=== PATIENT | female | born 1990 | race Hispanic/Latino ===

== ENCOUNTER 2021-09-30 16:43 | Emergency (ER) | payer OTHER, SELFPAY ==
[2021-09-30 17:02] VITALS: BP 132/64; PULSE 88; RESP 16; TEMP 36.8; O2SAT 99; BMI 21.9
--- NOTE | 2021-09-30 17:08 | DI.RAD.S_ITS ---
PROCEDURE: XR KNEE RT 3V INDICATIONS: twist/fall snowboard accident TECHNIQUE: 3 views of the knee were acquired. COMPARISON: None. FINDINGS: Bones: No fractures or dislocations. No suspicious bony lesions. Soft tissues: No joint effusion. No suspicious soft tissue calcifications. IMPRESSION: Normal right knee Dictated by: Satya Krueger M.D. on 09/30/2021 at 16:55 Approved by: Satya Krueger M.D. on 09/30/2021 at 16:56
--- NOTE | 2021-09-30 19:36 | ED.LOWEXIN ---
HPI - Extremity Injury (Lower) General Chief Complaint: Extremity Injury, Lower Stated Complaint: RT KNEE PAIN Time Seen by Provider: 09/30/21 19:35 Source: patient Mode of arrival: Wheelchair History of Present Illness HPI Narrative: Patient is a 31-year-old female who presents with right knee pain. She was snowboarding today she got off the chair lift and her knee twisted. She heard popping. She was initially seen in a dream and given ibuprofen. Came here for an x-ray. It hurts to ambulate she is able to extend and flex her knee but it is quite painful. No numbness tingling or weakness. She has had some ongoing right ankle pain her ankle does not hurt Related Data Previous Rx's Medication Instructions Recorded hydrocodone 5 mg-acetaminophen 325 1 tab PO Q6H PRN #10 tab 09/30/21 mg tablet Allergies Allergy/AdvReac Type Severity Reaction Status Date / Time No Known Drug Allergies Allergy Verified 09/30/21 17:02 Review of Systems Review of Systems Narrative: GENERAL: Denies chills,fever HEENT: Denies throat pain RESPIRATORY: Denies dyspnea, cough, wheezing CARDIOVASCULAR: Denies chest pain, palpitations GASTROINTESTINAL: Denies nausea, vomiting MUSCULOSKELETAL: See HPI SKIN: No rash, no laceration, no pruritus NEUROLOGIC: Denies weakness, dizziness, headache, numbness 8 point review of systems is negative except for those stated above and HPI Patient History Social History Smoking Status: Never smoker Smoking Status: Never smoker Substance Use Type: does not use Exam Initial Vital Signs Initial Vital Signs: Vital Signs Temperature 98.3 F 09/30/21 17:02 Pulse Rate 88 09/30/21 17:02 Respiratory Rate 16 09/30/21 17:02 Blood Pressure 132/64 09/30/21 17:02 Pulse Oximetry 99 09/30/21 17:02 GENERAL: Well-appearing, well-nourished and in no acute distress. CARDIOVASCULAR: peripheral pulses in tact, cap refill <2 sec RESPIRATORY: No respiratory distress, speaks in full sentences without difficulty EXTREMITIES: Normal range of motion, no clubbing or edema. Neurovascularly intact. Right knee able to extend quite painful distal pedal pulse is intact painful posterior anterior drawer but knee is stable. No significant swelling. Sensation intact distally. NEUROLOGICAL: Cranial nerves II through XII grossly intact. Normal gait and speech. SKIN: Warm, dry, no petechiae, no rashes or lesions. Procedures Orthopedic Splinting/Casting Injury #1: Side: right Lower Extremity Injury Location: knee Lower Extremity Immobilizer: knee immobilizer Other Orthopedic Equipment: crutches Post splinting neuro exam: intact Post splinting vascular exam: intact Placed by: Nursing Course Orders Ordered: ED Orders 09/30/21 17:08 XR knee RT 3V Stat Discontinued Medications Hydrocodone Bitart/Acetaminophen (Hydrocodone/Acet 5/325 Prepack) 1 bottle MISC SEEINSTR ONE Stop: 09/30/21 19:43 Last Admin: 09/30/21 20:11 Dose: 1 bottle Documented by: LUCRETIA Vital Signs Vital signs: Vital Signs - 8 hr 09/30/21 17:02 Temperature 98.3 F Pulse Rate 88 Respiratory Rate 16 Blood Pressure 132/64 Pulse Oximetry 99 MDM - Extremity Injury (Lower) Imaging Data Extremity x-ray #1: Radiologist's Impression: PROCEDURE:? XR KNEE RT 3V ? INDICATIONS:? twist/fall snowboard accident ? TECHNIQUE:? 3 views of the knee were acquired.? ? COMPARISON:? None. ? FINDINGS:? ? Bones:? No fractures or dislocations.? No suspicious bony lesions.? ? Soft tissues:? No joint effusion.? No suspicious soft tissue calcifications.? ? ? IMPRESSION:? Normal right knee ? ? Dictated by: Satya Krueger M.D. on 09/30/2021 at 16:55 ? ? Approved by: Satya Krueger M.D. on 09/30/2021 at 16:56 ? Discharge Plan Departure Patient Disposition: Home Clinical Impression: Strain of right knee Instructions: DI for Knee Sprain Activity Restrictions/Additional Instructions: *You have been diagnosed with right knee sprain *What to do: Wear knee immobilizer while active. He may take to sleep in. His crutches while active. Elevate and ice. You may need outpatient MRI if things do not improve. Please see your primary care provider about this. *Continue to take medications as directed Ibuprofen 800 mg every 8 hours if needed for [id number] pain Theodosia 1 tablet every 6 hours if needed for severe pain *Follow up with your primary care provider in 2-3 days or call [phone] *Return to ER if you should have increasing pain weakness numbness or tingling or any new, worsening or concerning symptoms CONTROLLED SUBSTANCE DISCHARGE (Narcotoic/benzodiazepine/Flexeril/Phenergan) 1. You have been prescribed narcotic medications, it does have acetaminophen/Tylenol/paracetamol in it, DO NOT TAKE MORE THAN 4,00mg in 24 hours of Tylenol. TRAMADOL DOES NOT CONTAIN TYLENOL 2. Please understand that we cannot provide further refills of narcotics, benzodiazepines or controlled substances through the ED and her pain management will need to be through your provider. 3. While on these medications you cannot drive or operate heavy machinery. 4. You cannot sign legal documents or perform any duties such as this. 5. As long as you're taking opiate pain medications he should also be taking a stool softener such as Colace, Dulcolax, MiraLAX or prune juice, to help avoid constipation. Prescriptions: New hydrocodone-acetaminophen 5-325 mg tablet 1 tab PO Q6H PRN (Reason: pain) Qty: 10 0RF Referrals: [facility] [Provider Group] [facility] Dallin Varela [Provider Group]
[2021-09-30] MEDS: HYDROCODONE/ACET 5/325 PREPACK 1 BOTTLE MISC (20:11)
== END 2021-09-30 20:30 | disposition home or self-care (01) ==
PROVIDERS: Emergency Provider Emergency Medicine
DX: S83.91XA Sprain of unspecified site of right knee, initial encounter (principal); Y93.23 Activity, snow (alpine) (downhill) skiing, snowboarding, sledding, tobogganing and snow tubing
CPT/HCPCS: 73562; 99283

== ENCOUNTER → 2021-10-11 08:36 | Outpatient (CLI) | payer OTHER, SELFPAY ==
--- NOTE | 2021-10-11 | DI.MRI.S_ITS ---
PROCEDURE: MR KNEE RT WO CON INDICATIONS: Unspecified injury of unspecified lower leg, initial encount TECHNIQUE: Noncontrast sagittal PD fast spin echo and T2 fast spin echo with fat saturation, sagittal 3-D FLASH with fat saturation; coronal T1 spin echo and PD fast spin echo with fat saturation, and axial PD fast spin echo with fat saturation through the knee. COMPARISON: None. FINDINGS: Image quality: Excellent. Menisci: Mildly increased certain all is seen within the peripheral portion of the medial meniscal body adjacent to the medial collateral ligament tear without definite extension to an articular surface. The lateral meniscus is intact. There is no significant meniscal extrusion. Cruciate ligaments: The anterior and posterior cruciate ligaments appear intact. Medial structures: There is edema surrounding the proximal medial collateral ligament. Additionally, there is partial disruption of the medial collateral ligament fibers with fluid signal intensity appearing within the ligament, consistent with a grade 2 sprain. Some of the ligament fibers remain in continuity. The semimembranosus tendon insertions and meniscocapsular junction appear intact. Visualized portions of the pes anserinus tendons appear normal. No abnormal bursal fluid. Lateral structures: The lateral collateral ligament, long and short heads of the biceps femoris tendon appear intact. The popliteus tendon appears intact. No signs of posterolateral corner injury. Iliotibial band appears normal. Anterior structures: The quadriceps and patellar tendons appear intact. Patellar alignment is normal. No femoral trochlear dysplasia or ventral trochlear prominence. No edema in the infrapatellar fat pad. Bones and cartilage: Osseous edema is seen at the posterior to far posterior weight-bearing portion of the lateral femoral condyle without a discrete fracture line, consistent with trabecular bone injury that may be related to a direct contusion. The cartilage of the medial and lateral femorotibial compartments, as well as the patellofemoral compartment, appears normal in thickness. Joint space: There is a physiologic amount of joint fluid. A trace medial popliteal cyst is present. The musculature surrounding the knee is normal in bulk. IMPRESSION: 1. Grade 2 sprain of the proximal medial collateral ligament. Some of the ligament fibers remain in continuity. 2. Mild trabecular bone injury at the posterolateral aspect of the lateral femoral condyle may be secondary to a direct contusion. 3. Mildly increased signal is seen in the medial meniscus near the junction of the posterior horn and body adjacent to the medial collateral ligament tear without extension to an articular surface, which may be reactive or related to a meniscal contusion without a discrete meniscal tear identified. Dictated by: Wilberto Giordano M.D. on 10/11/2021 at 9:12 Approved by: Wilberto Giordano M.D. on 10/11/2021 at 9:23
== END ==
PROVIDERS: Referring Provider Physician Assistant; Visit Provider Physician Assistant
DX: S83.411A Sprain of medial collateral ligament of right knee, initial encounter (principal); S89.91XA Unspecified injury of right lower leg, initial encounter; X58.XXXA Exposure to other specified factors, initial encounter
CPT/HCPCS: 73721

== ENCOUNTER → 2025-02-21 10:49 | Outpatient (CLI) | payer OTHER, SELFPAY ==
--- NOTE | 2025-02-21 10:52 | DI.US.S_ITS ---
PROCEDURE: US OB >= 14 WEEKS FETUS INDICATIONS: 20 WK ANATOMY SCAN OUTSIDE/PRIOR DATING DATA: Last menstrual period (LMP): 09/23/24. LMP-based estimated date of delivery (CEDRICK): 06/30/25. First dating scan (date and location): Not available. Estimated date of delivery (CEDRICK) from first dating scan: Not applicable. The calculations are made using the clinical CEDRICK of 06/30/25. TECHNIQUE: Real-time scanning was performed of the fetus, with image documentation and biometric measurements. Endovaginal scanning: Not performed COMPARISON: None. FINDINGS: General: A single living intrauterine gestation is present. Presentation: Transverse, head to maternal right. Placenta: Placental position is anterior , without previa. Amniotic fluid index: 13.6 cm, normal range is 5-24 cm. Single deepest vertical pocket is 3.8 cm. heart rate: 147 beats per minute. Maternal cervical canal: Closed and 4.4 cm long. Normal lower limit is 2.5 cm. biometrics: Biparietal diameter: 5.0 cm, 21 weeks one day Head circumference: 18.2 cm, 20 weeks four days Abdominal circumference: 17.4 cm, 22 weeks two days Femur length: 3.5 cm, 21 weeks 0 days Clinically estimated gestational age: 21 weeks four days Composite gestational age from present scan: 21 weeks two days Estimated weight and percentile: 438 g, 47th percentile Anatomic survey: Neuro: Ventricles are non-dilated at less than 10 mm. Cisterna magna is normal at 3-11 mm. Cerebellum is normal in size and morphology. Nuchal skin fold: Normal at less than 6 mm between 14-21 weeks gestational age. Face: Nose and lips, facial profile are normal. Spine: No evidence for spina bifida. Heart: 4-chambered heart is present, with normal ventricular outflow tracts. Diaphragm: Diaphragm is intact. Stomach: Left-sided stomach is present. Kidneys: No hydronephrosis. Normal is less than 5 mm in 2nd trimester, less than 7 mm in 3rd trimester. Cord: 3-vessel cord has orthotopic insertion. Bladder: Normal in size. Extremities: All 4 extremities identified. IMPRESSION: Single living intrauterine with estimated weight at the 47th percentile. Symmetric growth and normal anatomy. Composite gestational age two days behind the expected gestational age. Closed cervix and normal amniotic fluid volume. Anterior placenta. We strive to produce accurate, complete, and clear reports of imaging services. To assist us in improving patient care, this report was composed using standard report templates and voice recognition software. Therefore, it may contain abnormal punctuation, insertions and/or omissions. Occasional wrong-word or sound-alike substitutions may occur. Though we review the report and make efforts to correct it, we do recommend that the report be read carefully in proper context to recognize any text inaccuracies. Dictated by: Eugenia Romero M.D. on 02/21/2025 at 16:03 Approved by: Eugenia Romero M.D. on 02/21/2025 at 16:08
== END ==
PROVIDERS: Referring Provider Advanced Practice Midwife; Visit Provider Advanced Practice Midwife
DX: Z34.92 Encounter for supervision of normal pregnancy, unspecified, second trimester (principal); Z3A.21 21 weeks gestation of pregnancy
CPT/HCPCS: 76811

== ENCOUNTER → 2025-04-05 07:43 | Outpatient (CLI) | payer OTHER, SELFPAY ==
[2025-04-05 08:52] LABS: Glucose Fasting 113 mg/dL (70-100)
[2025-04-05 10:18] LABS: Glucose 1 Hour 178 mg/dL (70-170)
[2025-04-05 10:57] LABS: Glucose 2 Hour 245 mg/dL (70-140)
[2025-04-05 11:21] LABS: Glucose Tol Interpretation INTERPRETATION
[2025-04-05 12:44] LABS: Glucose 3 Hour 153 mg/dL (70-115)
== END ==
LOC: LAB 07:46
PROVIDERS: Referring Provider Nurse Practitioner Obstetrics & Gynecology; Visit Provider Nurse Practitioner Obstetrics & Gynecology
DX: Z34.80 Encounter for supervision of other normal pregnancy, unspecified trimester (principal); Z13.1 Encounter for screening for diabetes mellitus; Z3A.27 27 weeks gestation of pregnancy
CPT/HCPCS: 36415; 82951; 82952

== ENCOUNTER 2025-06-24 07:11 | Inpatient (IN) | payer OTHER, SELFPAY ==
[2025-06-24 07:32] VITALS: BP 129/78
--- NOTE | 2025-06-24 07:49 | PM.OBHP.1 ---
OB HPI Date/Time Date of admission: 06/24/25 Date Patient Seen: 06/24/25 Time Patient Seen: 07:15 History of Present Condition Chief complaint: INDUCTION : 1 Para: 0 Estimated Date of Delivery: 06/30/25 Estimated Gestational Age (weeks): 39w1d Narrative: Jena Chisholm is a 34 year old at 39w1d by LMP and concordant early ultrasound who presents for medical IOL due to GDMA2. informed consent was obtained and a velazquez balloon was placed last night for cervical ripening and that came out around 2030 last night. There has been no bleeding, cramping or leaking of fluid, and movement is good. has been complicated by GDMA2 with care under CNMs, co-managed GDMA2 with MFM with reassuring testing and normal serial growth US. Her and game programer are at the bedside for support. Indications Indication for induction OB: gestational diabetes History of Present care: good care, initiated at week #, number of visits (13) and pounds weight gain (18) Dating criteria: LMP confirmed by 1st trimester US Ultrasounds: normal 1st trimester US, normal mid trimester US and other (35wk EFW 87th% (3,027grams)) Obstetrical complications: gestational diabetes Medical complications: none Preadmission Labs Blood type: A (+) positive -: Antibody screen: negative, Cystic fibrosis screen: negative, GBS status: positive, HBsAG: negative, HIV: negative and RPR/VDLR: negative -: Chlamydia screen: not detected and Gonorrhea screen: not detected -: Rubella: immune and Varicella: immune HCT: 37.5 HCAB: negative PAP: Normal Cell-free DNA: negative x 3 1 hr GTT: 192 3 hr GTT: 3 hr (113, 178, 245, 153) Prior (ies) Hx # Term Pregnancies: 0 Hx # Pregnancies: 0 Number of Living Children: 0 Multiple births: 0 Spontaneous abortions: 0 Ectopic pregnancies: 0 Elective abortions: 0 Evaluation Evaluation Baseline heart rate: 135 Variability: Moderate (6-25) monitor accelerations: Present Monitor Decelerations: Absent Status: Category l Dilation: 3-4 cm Effacement: 60-70% station: -2 Position of cervix: posterior Consistency: soft Burgess score: 7 PFSH Family History (Updated 06/24/25 @ 08:10 by Jesusita Matias CNM) Grandmother Diabetes mellitus Grandfather Diabetes mellitus Mother Diabetes mellitus Father Diabetes mellitus Other Down syndrome Social History (Updated 06/24/25 @ 08:11 by Jesusita Matias CNM) marital status: number of children: 0 household members: spouse lives independently: Yes caregiver/support person: No education level: high school occupational status: student Smoking Status: Never smoker Meds Home Medications and Allergies Home Medications ?Medication ?Instructions ?Recorded ?Confirmed ?Type metformin 500 mg tablet,extended 1,000 mg PO BID 06/24/25 06/24/25 History release 24 hr Allergies Allergy/AdvReac Type Severity Reaction Status Date / Time No Known Drug Allergies Allergy Verified 06/24/25 07:35 Review of Systems Review of Systems ROS: Yes All systems reviewed with the patient and are negative except as otherwise documented OB Exam Vital signs Blood Pressure: 129/78 Pulse Rate: 75 Resp Effort & Inspection: normal respiratory effort and able to speak in complete sentences Cardio Rate: regular rate Rhythm: regular rhythm Heart Sounds: S1 normal and S2 normal Presentation: vertex Objective Labs 06/24/25 08:00 Assessment and Plan Assessment and Plan Assessment and Plan narrative: Assessment: Term Nullipara IOL for GDMA2 GBS prophylaxis indicated Cat 1 FHR Plan: Admit for medical IOL with misoprostol SL x2 for continued cervical ripening. Encourage balanced rest and activity. Continuous monitoring, per protocol. Reassess after 2 doses of miso. Time-Based Coding :: [TOTAL MINUTES] spent with patient and on the chart (including review of chart, obtaining history, exam, reviewing outside data, placing orders, documenting exam and treatment plan, and counseling patient) on [DATE].
[2025-06-24 08:13] LABS: Add Manual Diff / Slide Review NO; Hematocrit 35.2 % (36-46); Hemoglobin 12.2 g/dL (12.0-16.0); Lymphocytes Absolute Auto 1600 /uL (1100-4500); Mean Corpuscular HGB Conc 34.6 % (30-36); Mean Corpuscular Hemoglobin 32.4 PG (26-34); Mean Corpuscular Volume 93.6 fL (80-100); Platelet Count 233 X10^3/uL (150-400)
[2025-06-24 08:27] VITALS: BP 129/78; PULSE 75
--- NOTE | 2025-06-24 12:00 | PM.OBPNLAB ---
Date/Time Date Patient Seen: 06/24/25 Time Patient Seen: 12:00 Pain Control Comments: Sitting up on a ball talking and laughing. Feeling occasional mild cramping. No vaginal bleeding or leaking of fluid. [employer] and present and supportive. VS: BP 127/66, HR 86bpm, T 36.0C Temporal Pelvic Exam station: -2 Comments: CE deferred, not in labor Contractions Monitor mode: External Contraction frequency (min): 2 Contraction duration (min): 1 Contraction pattern: Irregular Contraction intensity: Mild Status status: Category l Heart Rate Baseline: 140 Monitor Accelerations: Present Monitor Decelerations: Absent Assessment and Plan Assessment: induction ongoing Plan: continuous present management Comments: Given 2nd dose of miso and reassess in 4 hours.
[2025-06-24] MEDS: AMPICILLIN 2,000 MG in SODIUM CHLORIDE 0.9% 100 ML 200 MG IV (13:55)
--- NOTE | 2025-06-24 17:05 | PM.OBPNLAB ---
Date/Time Date Patient Seen: 06/24/25 Time Patient Seen: 17:05 Pain Control Pain control: epidural Comments: Apparent rapid labor after 2nd dose of misoprostol given at 1220. Coped well with continuous labor support. Began to feel spontaneous urge to push and was checked and found to be 9cm. She requested and received an epidural. Now resting compfrtably and happy to have good pain relief. VS: BP 100/59, HR 90bpm, T 36.0C Temporal Pelvic Exam Dilation (cm): 9 Effacement (%): 100 station: -1 Amniotic membrane status: Bulging Contractions Monitor mode: External Contraction frequency (min): 2 (1-3) Contraction duration (min): 1 Contraction pattern: Regular Contraction intensity: Strong/Firm Status status: Category ll Heart Rate Baseline: 140 Monitor Accelerations: Present Monitor Decelerations: Late Monitor Variability: Moderate Assessment and Plan Assessment: active labor Plan: continuous present management Comments: Ephedrine given for BP with rapid resolution of late decelerations. Anticipate second stage soon. [facility] OB/ incidentally on unit making rounds and aware of patient status.
[2025-06-24] MEDS: ePHEDrine 50 MG/ML VIAL 10 MG IV ×2 (17:08→18:01)
--- NOTE | 2025-06-24 17:08 | PM.AN.REGBLK ---
Regional Block Pre-procedure Procedure: Continuous Lumbar Epidural for L&D (with dural puncture and small intrathecal injection ) Attending OB provider: Jesusita Matias PMH/ROS narrative: 34yo induced for GDM, now in labor at 9 cm and requesting epidural. See pre-anesthesia form for further details. ASA Class: II Labs: Hct 35.2 % (36-46) L 06/24/25 08:00 Plt Count 233 X10^3/uL (150-400) 06/24/25 08:00 Medications: Current Medications Generic Name Dose Route Start Last Admin Trade Name Freq PRN Reason Stop Dose Admin Calcium Carbonate 1,000 mg 06/24/25 07:21 Calcium Carbonate 500 Mg Tab PO Q2HR PRN Dyspepsia Carboprost Tromethamine 250 mcg 06/24/25 07:21 Carboprost 250 Mcg/Ml Ampul IM Q90M PRN Bleeding Diphenhydramine HCl 25 mg 06/24/25 17:06 Diphenhydramine 50 Mg/Ml Vial IV Q10M PRN Pruritis Ephedrine Sulfate 10 mg 06/24/25 17:06 Ephedrine 50 Mg/Ml Vial IV Q5M PRN Blood pressure decrease more than 20% of baseline. Fentanyl 100 mcg 06/24/25 07:21 Fentanyl 100 Mcg/2 Ml Inj IV Q1H PRN Pain, Severe (7-10) Oxytocin/Lactated Ringer's 30 unit in 500 mls @ 200 mls/hr 06/24/25 07:21 Oxytocin Premix IV CONT PRN Bleeding Protocol Tranexamic Acid 1,000 mg/ 100 mls @ 600 mls/hr 06/24/25 07:21 Sodium Chloride IV NOW PRN Bleeding Ampicillin Sodium 1,000 mg/ 100 mls @ 200 mls/hr 06/24/25 11:30 Sodium Chloride IV Q4H DEMETRIS Oxytocin/Lactated Ringer's 30 unit in 500 mls @ 2 mls/hr 06/24/25 07:30 Oxytocin Premix IV TITRATE DEMETRIS Protocol 2 MILLIUNIT/MIN Lactated Ringer's 1,000 mls @ 100 mls/hr 06/24/25 07:30 Lactated Ringers IV 06/24/25 17:29 CONT DEMETRIS FENT 2MCG/ML BUPIV 0.125% EPI 200 mcg in 100 mls @ 6 mls/hr 06/24/25 17:15 Fentanyl/Bupiv/Ns 2mcg/Ml - 0.125% EPIDURAL CONT DEMETRIS Lidocaine HCl 20 ml 06/24/25 07:21 Lidocaine 1% 20 Ml INJ INTRA-OP PRN Post Delivery Metformin HCl 500 mg 06/24/25 08:00 06/24/25 08:21 Metformin 500 Mg Tablet PO 500 mg 0800 DEMETRIS Administration Metformin HCl 1,000 mg 06/24/25 21:00 Metformin 500 Mg Tablet PO 2100 DEMETRIS Methylergonovine Maleate 0.2 mg 06/24/25 07:21 Methylergonovine 0.2 Mg Tablet PO Q6HR PRN Heavy Bleeding Methylergonovine Maleate 0.2 mg 06/24/25 07:21 Methylergonovine 0.2 Mg/Ml Vial IM NOW PRN Bleeding Metoclopramide HCl 10 mg 06/24/25 17:07 Metoclopramide 10 Mg/2 Ml Inj IV 06/25/25 17:07 Q4H PRN Nausea Mineral Oil 30 ml 06/24/25 07:21 Mineral Oil 30 Ml Udc TOP PRN PRN Version Misoprostol 800 mcg 06/24/25 07:21 Misoprostol 200 Mcg Tablet DE NOW PRN Bleeding Misoprostol 400 mcg 06/24/25 07:21 Misoprostol 200 Mcg Tablet SL NOW PRN Bleeding Nalbuphine HCl 2.5 mg 06/24/25 17:06 Nalbuphine 20 Mg/Ml Ampul IV Q10M PRN Pruritis Naloxone HCl 0.2 mg 06/24/25 07:21 Naloxone 0.4 Mg/Ml Vial IV Q2MIN PRN Opiate Reversal Ondansetron HCl 4 mg 06/24/25 07:21 Ondansetron 4 Mg/2 Ml Inj IV Q4HR PRN Nausea And Vomiting Ondansetron HCl 4 mg 06/24/25 17:07 Ondansetron 4 Mg/2 Ml Inj IV 06/25/25 17:07 Q6HR PRN Nausea Oxytocin 10 unit 06/24/25 07:21 Oxytocin 10 Unit/Ml Vial IM NOW PRN Bleeding Allergies: Allergies Allergy/AdvReac Type Severity Reaction Status Date / Time No Known Drug Allergies Allergy Verified 06/24/25 07:35 Procedure Insertion date: 06/24/25 Insertion time: 16:42 Prep/Local: 1% lidocaine (Chloraprep) Interspace: L3-4 Patient position: sitting Needle: 18 gauge Hustead (27g Pencan for dural puncture) Loss of resistance with: saline BRIE at (cm): 6 Catheter placed at SKIN (cm): 14 Catheter in SPACE (cm): 8 Insertion: Yes CSF, No Blood, No Paresthesia with insertion, No Paresthesia with injection and No Test dose reaction Initial Medications TEST DOSE time: 16:43 TEST DOSE: 1.5% lidocaine with epinephrine 1:200k (mL): 3 BOLUS DOSE time: 16:44 BOLUS DOSE (mL): 3 BOLUS DOSE med: other (2 ml same as test dose t 16:44, 1 ml of 2% lido PF intrathecally at 16:41. ) Infusion INFUSION: 0.125% bupivacaine and with fentanyl 2 mcg/mL Initial rate (mL/hr): 8 Subsequent interventions: Epidural infusion started at 16:56. Pt was extremely uncomfortable prior to epidural placement, now not feeling contractions. Able to move B feet but BLE very heavy and with limited mobility. Post-procedure Anesthesia date START: 06/24/25 Anesthesia time START: 16:30 Anesthesia date END: 06/24/25 Anesthesia time END: 20:01 Post-procedure Anesthesia Assessment: Yes CV function: HR/BP stable, Yes Resp function: RR/sat/airway adequate, Yes Post-op hydration adequate, Yes Pain control adequate, Yes Nausea & vomiting absent, Yes Temperature > 36 C, Yes Mental status appropriate and No Anesthesia complications
[2025-06-24] MEDS: AMPICILLIN 1,000 MG in SODIUM CHLORIDE 0.9% 100 ML 200 MG IV (17:46)
[2025-06-24] MEDS: OXYTOCIN PREMIX 30 UNIT/500 ML PLAST..BAG 200 UNIT IV (20:03)
--- NOTE | 2025-06-24 20:45 | PM.OBPRVD ---
Events: Gestational Diabetes, Labor Induction and Meconium Stained Fluid Labor & Delivery Delivery date: 06/24/25 Delivery Time: 20:47 Intrapartal Events: None Cervical ripening method: per Fuller bulb protocol Induction method: other (misoprostol x2 doses) Delivery monitor: external FHT and external uterine Route of delivery: L&D Laceration Description: Vaginal - 1st Degree and Superficial (labial splits) Quantitative Blood Loss: 300 Anesthesia Type: Epidural Complications: IOL for GDMA2 with Fuller balloon followed by misoprostol x2 doses. Labor progressed rapidly and adequate pain relief was achieved with an epidural at 9cm. GBS was adequately treated x 2 doses. Examined for report of increased pressure, C/C/0, and pushing was initiated. Coaching, encouragement and strong maternal efforts led to steady descent of vertex. RT was called to standby with for meconium stained amniotic fluid and Cat II FHR for recurrent variable decelerations during second stage. NSVB of a vigorous baby boy in TAVARES position with a single loose nuchal cord. FOB and CNM with hands on at delivery with easy delivery of the shoulders. Copious terminal meconium was noted. was lifted to maternal chest for drying and skin to skin. Apgars 9/9. 30 units of pitocin in 500mL LR was started at 333ml/hr for AMTSL. After cessation of pulsation, the cord was double clamped by CNM and cut by FOB. Cord blood hold sample was collected. Cord traction and maternal push led to spontaneous, Schultze delivery of an apparently intact placenta, membranes and 3VC. Fundus immediately firm and bleeding minimal. Vagina and perinume inspected and superfical bilateral labial splits were noted along with a hemostatic, well-approxinated 1st degree vaginal laceration with no indication for repair. QBL 300mL. Both mother and baby stable and skin to skin as I left the room. Baby 1: gender: Male Presentation: vertex Position: Left Occiput Anterior Placenta delivery description: Spontaneous Cord Vessel Description: 3 Vessels, Nuchal Cord and Loose score (1 min): 9 score (5 min): 9 weight: 3.41 kg Plan for aftercare: Routine care
[2025-06-24] MEDS: LANOLIN OINT 7 GM 1 APPLIC TOP (21:03)
[2025-06-24] MEDS: DERMOPLAST SPRAY 20% 60 ML 1 SPRAY TOP (21:03)
[2025-06-24] MEDS: ACETAMINOPHEN 325 MG TABLET 650 MG PO (21:04)
[2025-06-24] MEDS: KETOROLAC 30 MG/ML VIAL IV (21:05)
[2025-06-25] MEDS: IBUPROFEN 600 MG TABLET PO ×3 (04:29→17:35)
[2025-06-25] MEDS: ACETAMINOPHEN 325 MG TABLET 650 MG PO ×3 (04:30→17:35)
--- NOTE | 2025-06-25 15:57 | P.DS_ITS ---
Discharge Providers Provider Date of admission: 06/24/25 07:11 Discharge Date: 06/25/25 Primary care physician: Cierra TUCKER Provider Consults: 06/24/25 20:51 Consult to Employee Relation Manager Routine Comment: Discharge provider: Jesusita Matias CNM Summary Hospital Course Date Patient Seen: 06/25/25 Time Patient Seen: 15:57 Diagnoses: o70.0 Hospital Course: IOL for GDMA2 with Fuller balloon, and misoprostol (x2 doses). Epidural in labor with adequate GBS treatment (x2 doses). NSVB with a 1st degree vaginal laceration, no repair. PPD1: Stable s/p NSVB with normal QBL. Voiding, ambulating and independently. Tolerating a general diet. Pain is well controlled with PO medication. Showered and dressed in her own clothes, feeling ready for discharge to home with her new son. Her and family are present and able to provide help at home. Peripartum Data Infant Delivery Method: Natural Vaginal Laceration Description: Vaginal - 1st Degree and Superficial Episiotomy description: None Procedures: O70.0 complications: none 1: Gender: Male Disposition of : home Discharge Diagnosis (1) First degree perineal laceration during delivery: Start Date: 06/24/25 Start Time: 20:01 Status: Acute Status at Discharge Cognitive/behavioral status at discharge: oriented and calm Functional status at discharge: independent ambulation Overall status at discharge: patient is progressing back to baseline Time Spent with Patient Time attestation: Total time spent providing and/or coordinating discharge services: Time spent: Less than 30 minutes Objective Labs 06/24/25 08:00 Labs: Laboratory Results - last 24 hr 06/24/25 13:36 POC Whole Bld Glucose 84 Exam Vital Signs (past 8 hours): BP 108/60, HR 75bpm, RR 16, T 97.6F Temporal. SpO2 97% on RA Resp Effort & Inspection: normal respiratory effort and able to speak in complete sentences Cardio Rate: regular rate Rhythm: regular rhythm Other: Fundus firm @ U-1, lochia light to moderate without clots. Mild perineal edema. Psych Appearance: grossly normal and well kempt Mental Status: mental status grossly normal Affect: normal affect Discharge Plan Discharge Plan Patient Disposition: Home Discharge orders & Medications Prescriptions: New ibuprofen 600 mg Tablet 600 mg PO Q6H 14 Days Qty: 56 0RF Discontinued metformin 500 mg tablet extended release 24 hr 1,000 mg PO BID Follow up/Referrals: Jesusita Matias CNM [[employer], [employer]ERY [employer]] Referral Note: Follow-up in 2 weeks and 6 weeks as scheduled. Appointment are in your email. ProviderCierra [Primary Care Provider, Family Practice] Diet/Activity/Treatments Diet: Diet as Tolerated and Regular Activity: bed rest x 2 weeks, no heavy lifting x 4 weeks, pelvic rest x 6 weeks Skin/Wound/Dressing Care Report to your healthcare provider any signs of infection, such as:: chills, fever, increased pain, unusual drainage and unusual redness Visit Report/Discharge Packet Instructions: Depression Stand Alone Forms: Patient Portal/API, Stroke Signs & Symptoms Discharge Data Primary Care Provider: Cierra Andres Attending Provider: Jesusita Matias Admit Date/Time: 06/24/25 07:11
[2025-06-25 19:00] VITALS: BP 129/78; PULSE 75
== END 2025-06-25 19:30 | disposition home or self-care (01) | DRG 807 ==
PROVIDERS: Admitting Provider Nurse Practitioner Obstetrics & Gynecology; Referring Provider Nurse Practitioner Obstetrics & Gynecology; Visit Provider Nurse Practitioner Obstetrics & Gynecology
DX: O24.425 Gestational diabetes mellitus in childbirth, controlled by oral hypoglycemic drugs (principal); Z37.0 Single live birth; Z3A.39 39 weeks gestation of pregnancy; O99.824 Streptococcus B carrier state complicating childbirth; O76 Abnormality in fetal heart rate and rhythm complicating labor and delivery
CPT/HCPCS: 36415; 59050; 82962; 85025; 86850; 86900; 86901; G0378; G0379; J0290; J1885; J2590

== ENCOUNTER → 2025-08-04 08:02 | Outpatient (CLI) | payer OTHER, SELFPAY ==
[2025-08-04 10:20] LABS: Glucose 1 Hour 210 mg/dL (70-170)
[2025-08-04 10:20] LABS: Glucose Tol Interpretation INTERPRETATION
[2025-08-04 11:24] LABS: Glucose 2 Hour 191 mg/dL (70-140)
== END ==
PROVIDERS: Referring Provider Advanced Practice Midwife; Visit Provider Advanced Practice Midwife
DX: O24.92 Unspecified diabetes mellitus in childbirth (principal)
CPT/HCPCS: 36415; 82951; 82952

== ENCOUNTER → 2025-08-19 10:22 | Outpatient (CLI) | payer OTHER, SELFPAY ==
--- NOTE | 2025-08-19 10:24 | DI.RAD.S_ITS ---
PROCEDURE: XR SCOLIOSIS SURVEY
[2025-08-19 12:10] LABS: Hematocrit 37.5 % (36-46); Hemoglobin 13.1 g/dL (12.0-16.0); Mean Corpuscular HGB Conc 34.9 % (30-36); Mean Corpuscular Hemoglobin 31.1 PG (26-34); Mean Corpuscular Volume 88.9 fL (80-100); Platelet Count 267 X10^3/uL (150-400)
[2025-08-19 12:26] LABS: Hemoglobin A1C% w Est Avg Glu 5.6 % (4.0-6.0)
[2025-08-19 12:34] LABS: Alanine Aminotransferase 33 IU/L (<35); Albumin 5.2 g/dL (3.5-5.0); Albumin Globulin Ratio 1.7 (1.0-2.8); Alkaline Phosphatase 70 U/L (38-126); Blood Urea Nitrogen 17 mg/dL (7-17); Calcium 10.0 mg/dL (8.4-10.2); Carbon Dioxide 22 mmol/L (22-32); Chloride 105 mmol/L (98-107); Cholesterol 226 mg/dL (140-199); Estimated Glomerular Filt Rate > 60 mL/min (>60); Globulin 3.0 g/dL (1.7-4.1); Glucose 71 mg/dL (70-99); HDL Cholesterol 73 mg/dL (40-60); HEMOLYSIS < 15 (0-50); Potassium 4.3 mmol/L (3.4-5.1); Sodium 139 mmol/L (137-145); Total Protein 8.2 g/dL (6.3-8.2); Triglycerides 57 mg/dL (35-150)
[2025-08-19 12:40] LABS: Vitamin D 25 Hydroxy (D3) 37.5 ng/mL (30.0-100.0)
== END ==
LOC: RAD 10:23
PROVIDERS: PCP Family Medicine; Referring Provider Family Medicine; Visit Provider Family Medicine
DX: M41.9 Scoliosis, unspecified (principal); M54.9 Dorsalgia, unspecified; Z13.220 Encounter for screening for lipoid disorders; R73.03 Prediabetes; Z13.21 Encounter for screening for nutritional disorder; Z76.89 Persons encountering health services in other specified circumstances; E87.8 Other disorders of electrolyte and fluid balance, not elsewhere classified; Z13.9 Encounter for screening, unspecified; Z83.3 Family history of diabetes mellitus; Z86.32 Personal history of gestational diabetes
CPT/HCPCS: 36415; 72082; 80053; 80061; 82306; 83036; 85027